=== PATIENT | female | born 1980 | race Caucasian/White ===

== ENCOUNTER 2017-07-22 11:41 | Outpatient (CLI) | payer MEDICAID ==
[~2017-07-22] VITALS: Ht 175.3 cm; Wt 75.0 kg
[~2017-07-22 11:41] MED LIST: PREN1COM12; albuterol inhaler
[2017-07-22 12:04] VITALS: BP 118/69
[2017-07-22 12:44] LABS: AMNI OBC PASS; AMNISURE NEGATIVE (NEGATIVE)
[2017-07-22] MEDS ORDERED: TERBUTALINE 1 MG/ML, 1ML ONE (13:06)
[2017-07-22] MEDS ORDERED: TERBUTALINE 1 MG/ML, 1ML SQ ONE (13:30)
== END 2017-07-22 14:47 | disposition home or self-care (01) ==
LOC: LDOP 11:41
PROVIDERS: ATTEND Obstetrics & Gynecology
DX: O42.913 Preterm premature rupture of membranes, unspecified as to length of time between rupture and onset of labor, third trimester (principal); O99.513 Diseases of the respiratory system complicating pregnancy, third trimester; J45.909 Unspecified asthma, uncomplicated; Z3A.30 30 weeks gestation of pregnancy
CPT/HCPCS: 59025; 76815; 81001; 84112; 87086; 96372; 99211; J3105; G0463

== ENCOUNTER 2017-09-18 05:33 | Inpatient (IN) | payer MEDICAID ==
[~2017-09-18] VITALS: Ht 175.3 cm; Wt 84.5 kg
[2017-09-18] MEDS ORDERED: OXYTOCIN 30U/ 0.9% NaCL 500ML 500 ML IV SCH (05:39)
[2017-09-18] MEDS ORDERED: LACTATED RINGERS 1,000 ML IV SCH ×3 (05:39→08:12)
[2017-09-18 05:44] VITALS: BP 132/75
[2017-09-18] MEDS ORDERED: SODIUM CITRATE/CITRIC ACID 30 ML UDC PO ONE (06:00)
[2017-09-18] MEDS ORDERED: LACTATED RINGERS 1,000 ML IVBOLUS ONE (06:00)
[2017-09-18] MEDS ORDERED: METOCLOPRAMIDE 5 MG/ML, 2ML IV ONE (06:00)
[2017-09-18] MEDS ORDERED: NEWBORN KIT ONE (06:14)
[2017-09-18] MEDS ORDERED: METOCLOPRAMIDE 5 MG/ML, 2ML ONE (06:14)
[2017-09-18] MEDS ORDERED: OXYTOCIN 30U/ 0.9% NaCL 500ML 500 ML ONE (06:15)
[2017-09-18 06:29] LABS: BASOPHILS # (AUTO) 0.03 x10^3/uL (0-0.1); BASOPHILS % (AUTO) 0 % (0-1); EOSINOPHILS # (AUTO) 0.06 x10^3/uL (0-0.4); EOSINOPHILS % (AUTO) 1 % (1-7); LYMPHOCYTES # (AUTO) 1.85 x10^3/uL (1-3.4); LYMPHOCYTES % (AUTO) 21 % (22-44); MD NO; MEAN CORPUSCULAR HEMOGLOBIN 28.9 pg (27.0-34.8); MEAN CORPUSCULAR HGB CONC 33.7 g/dL (32.4-35.8); MEAN CORPUSCULAR VOLUME 85.5 fL (80-100); MEAN PLATELET VOLUME 7.8 fL (7.4-10.4); MONOCYTES # (AUTO) 0.59 x10^3/uL (0.2-0.8); MONOCYTES % (AUTO) 7 % (2-9); NEUTROPHILS # (AUTO) 6.48 x10^3/uL (1.8-6.8); NEUTROPHILS % (AUTO) 72 % (42-75); PLATELET COUNT 253 x10^3/uL (130-400); RED BLOOD COUNT 3.88 x10^6/uL (3.82-5.3); RED CELL DISTRIBUTION WIDTH 14.7 % (9.6-15.2)
[2017-09-18] MEDS ORDERED: EPHEDRINE 50 MG/ML, 1ML ONE (07:20)
[2017-09-18] MEDS ORDERED: KETOROLAC 30 MG/1 ML ONE (07:20)
[2017-09-18] MEDS: OXYTOCIN 30U/ 0.9% NaCL 500ML 500 ML IV SCH ×2 (08:12→18:12)
[2017-09-18] MEDS ORDERED: ONDANSETRON 2MG/ML, 2ML IV PRN (08:30)
[2017-09-18] MEDS ORDERED: morphine SULFATE 10 MG/ML, 1ML IVPush PRN (08:30)
[2017-09-18] MEDS ORDERED: MISOPROSTOL 200 MCG TABLET PR PRN (08:30)
[2017-09-18] MEDS ORDERED: KETOROLAC 30 MG/1 ML IV PRN (08:30)
[2017-09-18] MEDS ORDERED: OXYcodone/APAP 5/325MG TABLET PO PRN (08:30)
[2017-09-18] MEDS: PRENATAL VIT/IRON/FA 1 EACH TABLET PO SCH (09:00)
[2017-09-18] MEDS: LACTATED RINGERS 1,000 ML IV SCH ×2 (10:05→18:12)
[2017-09-18 10:46] VITALS: BP 131/73
[2017-09-18] MEDS: OXYcodone/APAP 5/325MG TABLET PO PRN ×2 (13:06→20:53)
[2017-09-18] MEDS: KETOROLAC 30 MG/1 ML IV SCH ×2 (14:17→20:53)
[2017-09-18 14:22] VITALS: BP 129/73
[2017-09-18 16:25] LABS: BASOPHILS # (AUTO) 0.04 x10^3/uL (0-0.1); BASOPHILS % (AUTO) 0 % (0-1); EOSINOPHILS % (AUTO) 0 % (1-7); LYMPHOCYTES % (AUTO) 8 % (22-44); MD NO; MEAN CORPUSCULAR HEMOGLOBIN 28.5 pg (27.0-34.8); MEAN CORPUSCULAR HGB CONC 33.1 g/dL (32.4-35.8); MONOCYTES # (AUTO) 0.53 x10^3/uL (0.2-0.8); MONOCYTES % (AUTO) 3 % (2-9); NEUTROPHILS # (AUTO) 14.02 x10^3/uL (1.8-6.8); NEUTROPHILS % (AUTO) 88 % (42-75); PLATELET COUNT 247 x10^3/uL (130-400); RED BLOOD COUNT 3.85 x10^6/uL (3.82-5.3); RED CELL DISTRIBUTION WIDTH 14.3 % (9.6-15.2)
[2017-09-18 19:30] VITALS: BP 119/69
[2017-09-18] MEDS: DOCUSATE 100 MG CAPSULE PO PRN (20:53)
[2017-09-19 00:20] VITALS: BP 107/67
[2017-09-19] MEDS: KETOROLAC 30 MG/1 ML IV SCH (03:02)
[2017-09-19] MEDS: LACTATED RINGERS 1,000 ML IV SCH (04:12)
[2017-09-19] MEDS: OXYTOCIN 30U/ 0.9% NaCL 500ML 500 ML IV SCH (04:12)
[2017-09-19] MEDS: OXYcodone/APAP 5/325MG TABLET PO PRN (04:59)
[2017-09-19 07:20] VITALS: BP 112/76
[2017-09-19] MEDS ORDERED: IBUPROFEN 600 MG TABLET ONE (08:56)
[2017-09-19] MEDS: IBUPROFEN 600 MG TABLET PO PRN ×3 (08:59→21:15)
[2017-09-19] MEDS: DOCUSATE 100 MG CAPSULE PO PRN ×2 (08:59→21:15)
[2017-09-19] MEDS: PRENATAL VIT/IRON/FA 1 EACH TABLET PO SCH (08:59)
[2017-09-19] MEDS ORDERED: PSEUDOEPHEDRINE 30 MG TABLET PO PRN (11:00)
[2017-09-19] MEDS: CETIRIZINE 10 MG TABLET PO SCH (11:04)
[2017-09-19] MEDS ORDERED: IBUPROFEN 600 MG TABLET PO PRN (14:30)
[2017-09-19 21:30] VITALS: BP 109/58
[2017-09-20] MEDS: IBUPROFEN 600 MG TABLET PO PRN ×2 (03:25→09:26)
[2017-09-20] MEDS: DOCUSATE 100 MG CAPSULE PO PRN (07:20)
[2017-09-20] MEDS: PRENATAL VIT/IRON/FA 1 EACH TABLET PO SCH (07:20)
[2017-09-20 07:45] VITALS: BP 124/81
[2017-09-20] MEDS: CETIRIZINE 10 MG TABLET PO SCH (09:00)
[2017-09-20] MEDS ORDERED: IBUP-1222 PO (11:44)
[2017-09-20] MEDS ORDERED: OXYC-302 PO (11:46)
== END 2017-09-20 14:20 | disposition home or self-care (01) | DRG 766 ==
LOC: LDIP 05:33 → 2NW 12:35
PROVIDERS: ADMIT Obstetrics & Gynecology; ATTEND Obstetrics & Gynecology
PROC: 10D00Z1 Extraction of Products of Conception, Low, Open Approach (ICD-10-PCS; principal; 2017-09-18)
PROC: 0UB70ZZ Excision of Bilateral Fallopian Tubes, Open Approach (ICD-10-PCS; 2017-09-18)
DX: O34.211 Maternal care for low transverse scar from previous cesarean delivery (principal); Z30.2 Encounter for sterilization; Z37.0 Single live birth; Z80.3 Family history of malignant neoplasm of breast; Z98.1 Arthrodesis status; Z3A.39 39 weeks gestation of pregnancy
CPT/HCPCS: 36415; 85025; 86850; 86900; 88302; J1885; J2590; J2765; J7120